=== PATIENT | female | born 1975 | race Caucasian/White ===

== ENCOUNTER 2018-07-15 21:45 | Emergency (ER) | payer OTHER ==
[2018-07-15] MEDS: diphenhydrAMINE INJ 50MG/ML VIAL (J1200) IV (23:34)
[2018-07-15] MEDS: methylPREDNISolone INJ 125 MG/2 ML VIAL (J2930) IV (23:34)
[2018-07-15] MEDS: FAMOTIDINE INJ 20MG/2ML VIAL (S0028) IV (23:34)
== END 2018-07-16 00:45 | disposition home or self-care (01) ==
LOC: M ED 07-16 00:45
DX: T45.0X5A Adverse effect of antiallergic and antiemetic drugs, initial encounter (principal); Y92.9 Unspecified place or not applicable; Y93.9 Activity, unspecified; L50.9 Urticaria, unspecified; Z87.891 Personal history of nicotine dependence; Z79.899 Other long term (current) drug therapy
CPT/HCPCS: J1200

== ENCOUNTER 2018-09-15 18:35 | Emergency (ER) | payer OTHER ==
[2018-09-15] MEDS: KETOROLAC TROMETHAMINE 10 MG TAB PO (22:06)
== END 2018-09-15 22:09 | disposition home or self-care (01) ==
LOC: M ED 18:35
DX: M65.841 Other synovitis and tenosynovitis, right hand (principal); Z88.8 Allergy status to other drugs, medicaments and biological substances
CPT/HCPCS: 99284

== ENCOUNTER → 2018-10-22 | Outpatient (CLI) | payer OTHER ==
[~2018-10-22] MED LIST: BENA25CA4 PO; MOBI4TAB PO; PRED20TA PO
--- NOTE | 2018-10-22 09:19 | REP ---
MRI RIGHT WRIST WITHOUT CONTRAST: HISTORY: Pain in the right wrist. Rule out Kienb ck's disease. TECHNIQUE: Axial, sagittal, and coronal imaging planes utilized for T1- and T2-weighted scans obtained in the usual fashion with without fat saturation. MRI FINDINGS: There is an area of subcortical marrow edema along the palmar aspect of the carpal lunate bone. Tiny cortical cyst is present here as well. The remainder of the lunate bone shows normal cortical and medullary bone signal intensity. There is no evidence of ellie avascular necrosis. Cortical and medullary bone signal intensity are normal in the remainder of the carpal bones. There is a tiny subcortical cyst in the mid capitate. A small ganglion cyst is seen along the palmar aspect of the radial styloid and its articulation with the carpal navicula. There are two components of this ganglion cyst which measure 15 mm craniocaudal x 9 mm medial to lateral x 2.5 mm in dorsal to palmar dimension. Extensor and flexor tendons appear intact. The patient is status post surgical release of the retinaculum at the carpal tunnel. Median nerve signal intensity is normal. IMPRESSION: There is a small zone of marrow edema in the lunate bone along its volar aspect but no ellie evidence of avascular necrosis. A tiny subcortical cysts noted. A small radial and palmar aspect ganglion cyst is noted. Electronically Signed by Kashmir Kimbrough MD 10/22/2018 06:33 P
== END ==
LOC: M RAD 07:17
PROVIDERS: ATTEND Orthopaedic Surgery Sports Medicine
DX: M67.431 Ganglion, right wrist (principal)

== ENCOUNTER → 2022-05-18 | Outpatient (CLI) | payer OTHER, SELFPAY | LOC: M RAD 13:12 | PROVIDERS: ATTEND Family Medicine | DX: I83.811 Varicose veins of right lower extremity with pain (principal) ==

== ENCOUNTER → 2024-03-25 | Outpatient (CLI) | payer OTHER | LOC: M PLAIMG 13:02 | PROVIDERS: ATTEND Orthopaedic Surgery | DX: M25.532 Pain in left wrist (principal); M65.832 Other synovitis and tenosynovitis, left forearm ==